=== PATIENT | male | born 1960 | race Caucasian/White ===

== ENCOUNTER 2021-09-22 15:41 | Inpatient (IN) | payer OTHER, SELFPAY ==
--- NOTE | ~2021-09-22 | CT_ITS ---
EXAMINATION: CT BRAIN AND CT CERVICAL SPINE WITHOUT CONTRAST. CLINICAL INFORMATION: Fall, seizure COMPARISON: None TECHNIQUE: 5 mm thin axial and reformatted 2 mm thin sagittal and coronal images of brain were obtained. Subsequently axial 3 mm thin and reformatted 2 mm thin sagittal and coronal images of cervical spine were obtained. DL 1087 FINDINGS: Brain: There is no acute intra-axial, extra-axial bleed, masses or midline shift. There is no acute infarction evolution. There is a 9 mm calcified density in the midline loulou measuring up 0.9 x 0.7 cm on axial image 24/4. This lesion was visualized on the previous study and is approximately same size. There is a subtle tubular hyper density extending from the dorsal to ventral loulou likely a draining vein into the left petrosal sinus. There is most likely a venous anomaly which was seen previously and is stable. There is no edema or mass effect at this time. The lateral ventricles are symmetrical in size and configuration with minimal enlargement. There is mild prominence of bilateral frontal cortical sulci and subarachnoid space. It is similar to previous study. Bone windows reveal left temporal craniotomy changes with mild anterior temporal lobe encephalomalacia are post surgical changes. There is no mass effect on the left temporal horn to suspect any edema or recurrent disease. Bone windows reveal no calvarial abnormality. Bilateral paranasal sinuses are well-aerated with small polyp or retention cyst right maxillary sinus. The mastoid sinuses are clear. Cervical spine: There is normal cervical lordosis. The vertebral heights, alignment and disc heights are normal. The craniovertebral junction and the C1-C2 alignment is normal. There is no visible acute fracture, dislocation or subluxation. The prevertebral and paravertebral soft tissues are normal. The airway is widely patent. There is mild bilateral facet joint arthropathy with mild narrowing of respective neural foramina. CT/CT head/brain wo con IMPRESSION: No acute intracranial process seen. Left temporal craniotomy with anterior temporal lobe encephalomalacia from remote surgery. Central pontine calcification with hyperdense drainage vein likely venous anomaly. The findings are similar previous CT brain 08/02/2018. There is no mass effect edema at this time. No acute fracture or dislocation cervical spine. There are degenerative facet joint arthropathy changes in cervical spine with mild narrowing of respective neural foramina.
--- NOTE | ~2021-09-22 | CT_ITS ---
EXAMINATION: CT BRAIN AND CT CERVICAL SPINE WITHOUT CONTRAST. CLINICAL INFORMATION: Fall, seizure COMPARISON: None TECHNIQUE: 5 mm thin axial and reformatted 2 mm thin sagittal and coronal images of brain were obtained. Subsequently axial 3 mm thin and reformatted 2 mm thin sagittal and coronal images of cervical spine were obtained. DLP 1087 FINDINGS: Brain: There is no acute intra-axial, extra-axial bleed, masses or midline shift. There is no acute infarction evolution. There is a 9 mm calcified density in the midline loulou measuring up 0.9 x 0.7 cm on axial image 24/4. This lesion was visualized on the previous study and is approximately same size. There is a subtle tubular hyper density extending from the dorsal to ventral loulou likely a draining vein into the left petrosal sinus. There is most likely a venous anomaly which was seen previously and is stable. There is no edema or mass effect at this time. The lateral ventricles are symmetrical in size and configuration with minimal enlargement. There is mild prominence of bilateral frontal cortical sulci and subarachnoid space. It is similar to previous study. Bone windows reveal left temporal craniotomy changes with mild anterior temporal lobe encephalomalacia are post surgical changes. There is no mass effect on the left temporal horn to suspect any edema or recurrent disease. Bone windows reveal no calvarial abnormality. Bilateral paranasal sinuses are well-aerated with small polyp or retention cyst right maxillary sinus. The mastoid sinuses are clear. Cervical spine: There is normal cervical lordosis. The vertebral heights, alignment and disc heights are normal. The craniovertebral junction and the C1-C2 alignment is normal. There is no visible acute fracture, dislocation or subluxation. The prevertebral and paravertebral soft tissues are normal. The airway is widely patent. There is mild bilateral facet joint arthropathy with mild narrowing of respective neural foramina. CT/CT cervical spine wo con IMPRESSION: No acute intracranial process seen. Left temporal craniotomy with anterior temporal lobe encephalomalacia from remote surgery. Central pontine calcification with hyperdense drainage vein likely venous anomaly. The findings are similar previous CT brain 08/02/2018. There is no mass effect edema at this time. No acute fracture or dislocation cervical spine. There are degenerative facet joint arthropathy changes in cervical spine with mild narrowing of respective neural foramina.
--- NOTE | ~2021-09-22 | CT_ITS ---
EXAMINATION: CT ABDOMEN AND PELVIS WITHOUT CONTRAST CLINICAL INFORMATION: Abdominal pain COMPARISON: Previous CT of the abdomen and pelvis 09/22/2021 TECHNIQUE: Multidetector volumetric imaging was performed from the superior aspect of the liver through the pubic symphysis. Sagittal and coronal reformatted images were obtained on the technologist's workstation. This CT examination was performed using dose optimization techniques as appropriate, variously including the following: *Automated exposure control *Adjustment of mA and/or kV according to patient size (this includes techniques or standardized protocols for targeted exams where dose is matched to indication/reason for exam; i.e. extremities or head) *Use of iterative reconstruction technique DLP: 411 mGy-cm FINDINGS: LUNG BASES: The visualized lung bases are unremarkable. LIVER, GALLBLADDER, AND BILIARY TREE: The liver is normal in size, shape, and attenuation. No focal hepatic lesion or biliary ductal dilatation is present. The gallbladder is unremarkable with no evidence of radiopaque gallstones, gallbladder wall thickening, or obvious pericholecystic inflammatory changes. Gallbladder no longer appears distended. PANCREAS: Unremarkable. SPLEEN: Unremarkable. ADRENAL GLANDS: Unremarkable. KIDNEYS AND URETERS: The kidneys are normal in size, shape, and attenuation. No hydronephrosis, hydroureter, or calculi seen. No perinephric stranding. BLADDER: Not optimally distended. GASTROINTESTINAL TRACT: There is mild diverticulosis of the colon. No evidence of diverticulitis is seen. There are slightly distended fluid-filled loops of proximal small bowel. No transition zone is seen. The stomach is slightly distended and filled with food. Small and large bowel is otherwise unremarkable. The appendix is unremarkable. ABDOMINAL WALL: No significant hernia is appreciated. LYMPH NODES: Normal. VASCULAR: There is evidence of atherosclerotic disease. There is an IVC filter that appears unchanged. PELVIC VISCERA: Unremarkable. OSSEOUS STRUCTURES: There are degenerative changes of the spine. CT/CT abdomen pelvis wo con IMPRESSION: Normal-appearing gallbladder. Diverticulosis of the colon. Slightly distended fluid-filled loops of proximal small bowel and slightly distended fluid-filled fluid-filled stomach. Differential would include ileus and partial small bowel obstruction. No transition zone is seen. Fleischner guidelines were followed.
--- NOTE | ~2021-09-22 | CT_ITS ---
EXAMINATION: CT ABDOMEN AND PELVIS WITHOUT CONTRAST CLINICAL INFORMATION: History of small bowel obstruction, abdominal pain COMPARISON: None TECHNIQUE: Multidetector volumetric imaging was performed from the superior aspect of the liver through the pubic symphysis. Sagittal and coronal reformatted images were obtained on the technologist's workstation. This CT examination was performed using dose optimization techniques as appropriate, variously including the following: *Automated exposure control *Adjustment of mA and/or kV according to patient size (this includes techniques or standardized protocols for targeted exams where dose is matched to indication/reason for exam; i.e. extremities or head) *Use of iterative reconstruction technique DLP: 449 mGy-cm FINDINGS: LUNG BASES: The visualized lung bases are unremarkable. ABDOMINAL AND PELVIC WALL: Unremarkable. LIVER AND BILIARY TREE: Unremarkable GALLBLADDER: Gallbladder is moderately distended however without radiopaque stones. PANCREAS: Unremarkable SPLEEN: Unremarkable ADRENAL GLANDS: Unremarkable. KIDNEYS AND URETERS: Unremarkable. UPPER GASTROINTESTINAL TRACT: Small hiatal hernia. VASCULAR: IVC filter tip terminates below the level of the renal veins. LYMPH NODES: No lymphadenopathy. BLADDER: Unremarkable PELVIC VISCERA: Unremarkable LOWER GASTROINTESTINAL TRACT: Colonic diverticulosis without evidence of diverticulitis. No dilation of large or small bowel to suggest obstruction. No findings to suggest appendicitis. OSSEOUS STRUCTURES: Unremarkable CT/CT abdomen pelvis wo con IMPRESSION: No findings to suggest small bowel obstruction. Gallbladder is moderately distended. No radiopaque gallstones seen. Consider correlation with right upper quadrant pain and right upper quadrant ultrasound if symptoms warrant.
[2021-09-22 15:54] VITALS: BP 129/96; PULSE 106; PULSE 109; RESP 18; TEMP 36.6; O2SAT 97; O2SAT 98; BMI 22.9
[2021-09-22] MEDS: levETIRAcetam in NaCl (iso-os) 1,000 MG/100 ML PIGGYBACK 400 MG IV (16:48)
[2021-09-22] MEDS: 0.9 % Sodium Chloride 1,000 ML 999 ML IV (16:49)
--- NOTE | 2021-09-22 16:50 | ED.GENADULT ---
HPI - General Adult General Chief complaint: Seizure Stated complaint: etoh Time Seen by Provider: 09/22/21 16:20 Source: patient Mode of arrival: ambulatory Limitations: no limitations History of Present Illness HPI narrative: 61-year-old male with past medical history of migraines, alcohol abuse, and seizure presents to ED for seizure-like activity. As per EMS patient's friend who was drinking called call them for fall. As per EMS during ambulance ride patient had tonic clonic seizure activity. Unknown if patient is compliant with seizure medications. Patient denies any headache, chest pain or shortness of breath. Patient agrees to drinking 5 nips of alcohol per day Related Data Home Medications Medication Instructions Recorded Confirmed acetaminophen 500 mg tablet 1,000 mg PO TID PRN 09/22/21 09/22/21 aspirin 81 mg chewable tablet 1 tab PO DAILY 09/22/21 09/22/21 atorvastatin 40 mg tablet 1 tab PO DAILY 09/22/21 09/22/21 clonidine HCl 0.1 mg tablet 1 tab PO QPM 09/22/21 09/22/21 divalproex 250 mg tablet,extended 500 mg PO DAILY 09/22/21 09/22/21 release 24 hr escitalopram oxalate 20 mg tablet 1 tab PO DAILY 09/22/21 09/22/21 fluticasone furoate 100 1 puff INHALATION DAILY 09/22/21 09/22/21 mcg-vilanterol 25 mcg/dose inhalation powder (Breo Ellipta) gabapentin 400 mg capsule 1 cap PO TID 09/22/21 09/22/21 lamotrigine 25 mg tablet 1 tab PO BID 09/22/21 09/22/21 levetiracetam 1,000 mg tablet 1 tab PO BID 09/22/21 09/22/21 mometasone-formoterol HFA 100 2 puff INHALATION BID 09/22/21 09/22/21 mcg-5 mcg/actuation aerosol inhaler (Dulera) multivitamin 1 tab PO DAILY 09/22/21 09/22/21 trazodone 150 mg tablet 1 tab PO BEDTIME 09/22/21 09/22/21 umeclidinium 62.5 mcg/actuation 1 puff INHALATION DAILY 09/22/21 09/22/21 blister powder for inhalation (Incruse Ellipta) Allergies Allergy/AdvReac Type Severity Reaction Status Date / Time No Known Allergies Allergy Unverified 06/01/20 19:35 [No Known Allergies*] Review of Systems Review of Systems: Alcohol on breath. Possible fall Yes all other systems are reviewed and are negative [facility] Social History Social History Household Members: Family Housing: Apartment Do you presently have visiting nurse or other home services: Yes Alcohol intake: current Alcohol intake frequency: 3 or more drinks per day Alcohol type: hard liquor Patient Tobacco Use Status: Current everyday Tobacco user Tobacco use type: Cigarette Smoked in Last 30 Days: Yes Patient Interested in Nicotine Replacement: Yes Patient Given Instructions on How to Stop Smoking: No Second Hand Smoke Exposure: No Use of substances other than those prescribed or required for medical reasons: No Have you been hit, kicked, punched, or otherwise hurt by someone within the past year? If so, by whom?: No Do you feel safe in your current relationship?: No Is there a partner from a previous relationship who is making you feel unsafe now?: No Are you made to feel afraid or neglected: No Advance Directives: No Advance Directives Information Provided: Yes Do you have thoughts of harming others: None Do you have a plan to hurt others: No Plan Recently lost weight without trying: No Nutrition Risks: No Nutritional Risk Poor oral hygiene: No Physical Exam Vital Signs: Vital Signs: Last Vital Signs Temp 97.2 F 09/22/21 23:55 Pulse 93 09/22/21 23:55 Resp 20 09/22/21 23:55 BP 127/72 09/22/21 23:55 Pulse Ox 95 09/22/21 23:55 BMI result Body Mass Index 22.9 Const: General: cooperative, healthy appearing, comfortable, no acute distress and well developed Orientation/consciousness: oriented to time HENMT: Head: Yes normal to inspection, Yes No palpable skull fracture present, Yes normocephalic, No atraumatic and No abrasion Eyes: General: appearance normal, both eyes and all related structures Neck: Neck: Yes normal visual inspection, Yes full ROM, Yes no lymphadenopathy, Yes no meningeal signs, Yes trachea midline, Yes supple, No anterior neck swelling and No tender Chest: Chest palpation & inspection: normal inspection of the chest and normal palpation of entire chest wall Resp: Effort & Inspection: normal respiratory effort and able to speak in complete sentences Auscultation: clear to auscultation bilaterally Cardio: Jugular venous distension: no JVD Heart sounds: S1 normal heart sound present and S2 normal heart sound present GI: Inspection: Yes normal to inspection and No abdominal wall ecchymosis Palpation (GI): Soft to palpation, not firm, nontender, no guarding and not rigid : General: No CVA tenderness and Yes no CVA tenderness Back/Spine/Pelvis: Back: no CVA tenderness, No CVA tenderness and No back tenderness Skin: General skin exam: no rashes or lesions noted and elasticity normal Neuro: Other: Alcohol on breath, but is alert oriented x3. Negative facial droop. Negative slurred speech. All extremities equal strength 5+. Negative pronator drift General: oriented to time, gait normal and no meningeal signs Extrem: General: Yes normal to inspection and Yes full ROM Psych: Appearance: disheveled Course Course Course Narrative: Patient on extensive seizure medications unsure if patient is compliant. Patient's presentation, history of alcohol abuse, and being on the street unlikely patient is compliant with medication. Send Depakote level. . Will give Keppra. Will do imaging of head and neck due to patient's elías calling for fall after drinking. Labs including electrolytes/magnesium ordered. Reevaluation(s) Reevaluation #1: Received recent discharge/hospital stay papers from [facility] which was on 08/21/2021. Patient was admitted for diverticulitis small-bowel obstruction which required IV antibiotics and patient was discharged. While reviewing notes states patient has history of alcohol use disorder, alcohol withdrawal, hepatitis cirrhosis, COPD diabetes, seizure, history of chronic headaches and has hemangioma as per [facility] and not any form of hemorrhage or anuerysm. Patient's discharge papers showed seizure medication to start Depakote, Keppra, and lamictal. Time: 17:00 Reevaluation #2: Patient labs shows hypokalemia. Magnesium is normal. Kidney functions normal. LFTs at baseline. Patient's valproic it is subtherapeutic which shows patient is not compliant with meds not taking medication. Head CT scan cervical spine CT negative for any fracture. Time: 18:59 Reevaluation #3: Case was discussed with Dr. Cox for admission for seizure due to patient not being compliant with seizure meds versus possible alcohol withdrawal seizure the patient history of alcoholism. He agree non compliant or alcohol withdrawal could be cause reason for patient having seizure and recommends patient be admitted. Also recommended patient be started on phenobarbital Time: 00:30 Medical Decision Making MDM Narrative Medical decision making narrative: Seizure Lab Data Result diagrams: 09/22/21 17:39 09/22/21 17:39 Labs: Lab Results 09/22/21 09/22/21 09/22/21 Range/Units 17:39 17:39 17:39 WBC 5.1 (4.8-10.8) X10*3/uL RBC 4.57 L (4.60-5.80) X10*6/uL Hgb 14.7 (14.0-18.0) g/dl Hct 41.7 L (42.0-52.0) % MCV 91.2 (80.0-98.0) fL MCH 32.2 (27.0-33.0) pg MCHC 35.3 (31.0-36.0) g/dl RDW 15.0 (11.0-16.0) % Plt Count 162 (160-400) X10*3/uL MPV 9.6 (9.4-12.4) fL Immature Gran % (Auto) 0.2 (0.0-0.4) % Neut % (Auto) 52.5 (45-73) % Lymph % (Auto) 32.9 (20-40) % [place] % (Auto) 11.4 H (2-11) % Eos % (Auto) 1.6 (0-4) % Baso % (Auto) 1.4 (0-2) % Lymph # (Auto) 1.7 (1.2-4.9) X10*3/uL [place] # (Auto) 0.6 (0.1-1.2) X10*3/uL Eos # (Auto) 0.1 (0.0-0.4) X10*3/uL Baso # (Auto) 0.1 (0.0-0.2) X10*3/uL Abs Immat Gran (auto) 0.01 (0.00-0.03) X10*3/uL Absolute Neuts (auto) 2.7 (2.0-8.3) x10*3/uL Absolute Nucleated RBC 0.000 (0.0-0.012) X10*3/uL Nucleated RBC % (auto) 0.0 (0.0-0.2) /100WBC PT (9.9-13.0) SEC INR (0.9-1.1) APTT (24.1-38.0) SEC Sodium 142 (135-145) mmol/L Potassium 3.0 L (3.3-5.1) mmol/L Chloride 94 L (96-108) mmol/L Carbon Dioxide 27 (22-29) mmol/L Anion Gap 24 H (12-20) BUN 9 (9-16) mg/dL Creatinine 0.64 (0.5-1.4) mg/dL Estim Creat Clear Calc 121.2 Estimated GFR > 60 Random Glucose 85 (60-115) mg/dL Calcium 8.6 (8.4-10.2) mg/dL Magnesium 1.9 (1.6-2.6) mg/dL Total Bilirubin 1.7 H (0.0-1.0) mg/dL AST 76 H (5-37) U/L ALT 47 H (0-40) U/L Alkaline Phosphatase 89 (39-117) U/L Total Protein 6.0 L (6.5-8.0) g/dL Albumin 3.5 (3.5-5.0) g/dL Lipase 57 (8-78) U/L Valproic Acid (50.0-100.0) mcg/mL Ethyl Alcohol 291 mg/dL 09/22/21 09/22/21 Range/Units 17:39 17:39 WBC (4.8-10.8) X10*3/uL RBC (4.60-5.80) X10*6/uL Hgb (14.0-18.0) g/dl Hct (42.0-52.0) % MCV (80.0-98.0) fL MCH (27.0-33.0) pg MCHC (31.0-36.0) g/dl RDW (11.0-16.0) % Plt Count (160-400) X10*3/uL MPV (9.4-12.4) fL Immature Gran % (Auto) (0.0-0.4) % Neut % (Auto) (45-73) % Lymph % (Auto) (20-40) % [place] % (Auto) (2-11) % Eos % (Auto) (0-4) % Baso % (Auto) (0-2) % Lymph # (Auto) (1.2-4.9) X10*3/uL [place] # (Auto) (0.1-1.2) X10*3/uL Eos # (Auto) (0.0-0.4) X10*3/uL Baso # (Auto) (0.0-0.2) X10*3/uL Abs Immat Gran (auto) (0.00-0.03) X10*3/uL Absolute Neuts (auto) (2.0-8.3) x10*3/uL Absolute Nucleated RBC (0.0-0.012) X10*3/uL Nucleated RBC % (auto) (0.0-0.2) /100WBC PT 11.8 (9.9-13.0) SEC INR 1.0 (0.9-1.1) APTT 23.8 L (24.1-38.0) SEC Sodium (135-145) mmol/L Potassium (3.3-5.1) mmol/L Chloride (96-108) mmol/L Carbon Dioxide (22-29) mmol/L Anion Gap (12-20) BUN (9-16) mg/dL Creatinine (0.5-1.4) mg/dL Estim Creat Clear Calc Estimated GFR Random Glucose (60-115) mg/dL Calcium (8.4-10.2) mg/dL Magnesium (1.6-2.6) mg/dL Total Bilirubin (0.0-1.0) mg/dL AST (5-37) U/L ALT (0-40) U/L Alkaline Phosphatase (39-117) U/L Total Protein (6.5-8.0) g/dL Albumin (3.5-5.0) g/dL Lipase (8-78) U/L Valproic Acid 4.3 L (50.0-100.0) mcg/mL Ethyl Alcohol mg/dL Discharge Plan Discharge Clinical Impression: Seizure, Alcohol abuse, Generalized seizure, Alcohol withdrawal Patient Disposition: Admitted As Inpatient Interventions: Admission Worksheet (ED) Last Done: 09/22/21 23:58 Discharge Date/Time: 09/22/21 23:59
--- NOTE | 2021-09-22 17:24 | PC.NURSE ---
PTS SON COLLEEN CALLED FOR UPDATE, PT GAVE PERMISSION FOR SHARING HIS DISPOSITION AND CARE PLAN SON REPORTS IF HIS FATHER GETS D/C PLEASE CALL [facility] FOR [facility]- FRIEND
[2021-09-22 17:44] LABS: MANUAL DIFF FLAG NO
[2021-09-22 17:45] LABS: Basophils Absolute Auto 0.1 X10*3/uL (0.0-0.2); Basophils Percent Auto 1.4 % (0-2); Eosinophils Absolute Auto 0.1 X10*3/uL (0.0-0.4); Eosinophils Percent Auto 1.6 % (0-4); Hematocrit 41.7 % (42.0-52.0); Hemoglobin 14.7 g/dl (14.0-18.0); Imm Gran Abs Auto 0.01 X10*3/uL (0.00-0.03); Imm Gran Pct Auto 0.2 % (0.0-0.4); Lymphocytes Absolute Auto 1.7 X10*3/uL (1.2-4.9); Lymphocytes Percent Auto 32.9 % (20-40); Mean Corpuscular HGB Conc 35.3 g/dl (31.0-36.0); Mean Corpuscular Hemoglobin 32.2 pg (27.0-33.0); Mean Corpuscular Volume 91.2 fL (80.0-98.0); Mean Platelet Volume 9.6 fL (9.4-12.4); Monocytes Absolute Auto 0.6 X10*3/uL (0.1-1.2); Monocytes Percent Auto 11.4 % (2-11); Neutrophils Absolute Auto 2.7 x10*3/uL (2.0-8.3); Neutrophils Percent Auto 52.5 % (45-73); Platelet Count 162 X10*3/uL (160-400); Red Blood Count 4.57 X10*6/uL (4.60-5.80); White Blood Count 5.1 X10*3/uL (4.8-10.8)
[2021-09-22] MEDS: Divalproex Sodium 500 MG TABLET.DR PO (17:51)
[2021-09-22 17:52] LABS: Prothrombin Time 11.8 SEC (9.9-13.0)
[2021-09-22 17:55] LABS: Partial Thromboplastin Time 23.8 SEC (24.1-38.0)
[2021-09-22 18:00] LABS: Ethanol 291 mg/dL
[2021-09-22 18:06] LABS: Alanine Aminotransferase 47 U/L (0-40); Albumin Level 3.5 g/dL (3.5-5.0); Alkaline Phosphatase 89 U/L (39-117); Anion Gap 24 (12-20); Aspartate Amino Transferase 76 U/L (5-37); Bilirubin Total 1.7 mg/dL (0.0-1.0); Blood Urea Nitrogen 9 mg/dL (9-16); Calcium 8.6 mg/dL (8.4-10.2); Carbon Dioxide 27 mmol/L (22-29); Chloride 94 mmol/L (96-108); Creatinine Clr Calc Pharmacy 121.2; Estimated Glomerular Filt Rate > 60; Glucose Random 85 mg/dL (60-115); Magnesium 1.9 mg/dL (1.6-2.6); Sodium 142 mmol/L (135-145); Valproate 4.3 mcg/mL (50.0-100.0)
[2021-09-22 19:38] VITALS: BP 116/73; PULSE 100; RESP 16; O2SAT 99
[2021-09-22] MEDS: Potassium Chloride Packet 20 MEQ PACKET 40 MEQ PO (19:50)
--- NOTE | 2021-09-22 20:40 | P.HPHOSP_ITS ---
History of Present Illness Date of Service: 09/22/21 Chief Complaint: Seizure 61-year-old male with a past medical history of hypertension, diabetes, polysubstance abuse, alcohol abuse, liver cirrhosis, hepatitis-C, COPD, history of NSTEMI, history of DVT/PE status post IVC filter, migraine headaches, seizure disorder on antiepileptics, history of migraines, history of C diff, history of cerebral aneurysm status post clipping presented to the hospital today with a chief complaint of seizure episode. Patient is a poor historian. Reportedly patient had an episode of seizure at home and subsequently brought to the hospital for further evaluation. Patient reports that he has been drinking regularly. Reports he had a recent admission to the [facility] for constipation, diverticulitis, small-bowel obstruction. Denies any abdominal pain nausea vomiting or diarrhea. Denies any numbness tingling or focal weakness. Review of all other systems is negative except mentioned above ER course: Per ER team patient's exam was benign, CT head and CT C-spine showed no acute findings; alcohol level noted to be elevated; also has mild transaminitis. Depakote level was low. Concern for seizure episode secondary to medication noncompliance. Admitted for further management. Patient started on phenobarb protocol. PMH: Cerebral aneurysm, nonruptured s/p clip in 2006 Chronic hepatitis C Chronic obstructive pulmonary disease Cirrhosis of liver Diabetes ETOH abuse Headache, chronic daily History of C. difficile colitis History of intracranial hemorrhage History of NSTEMI associated with cocaine History of PE and bilateral DVT, s/p IVC filter placement Migraine headache without aura Pneumonia Seizure disorder, petit mal Tobacco dependence PSH: IVC - Insertion of inferior vena caval filter: 2014 Clipping of cerebral aneurysm: 2009 Repair of umbilical hernia: 2009 Social History Alcohol Details: Other: lives in sober house. Details: Use: Past. Other: States history of alcoholism, states sober x 7 months. Substance Abuse Details: Use: Past. Type: Heroin, Prescription medications. Other: states clean x 3 years. Tobacco Details: Use: 10 or more cigarettes (1/2 pack or more)/day in last 30 days. Details: Current every day smoker HOME MEDs: Acamprosate (acamprosate 333 mg oral delayed release tablet) 2 tab(s) 666 Milligram By Mouth 3 times a day for 30 Days Dispense: 180 tab(s) Acetaminophen (acetaminophen 500 mg oral tablet) 1 tab(s) 500 Milligram By Mouth Every 4 hours as needed as needed for pain Albuterol/Ipratropium (albuterol-ipratropium 3 mg-0.5 mg/3 ml inhalation solution) 3 Milliliter Inhalation 4 times a day as needed Wheezing/Shortness of Breath Dispense: 30 Each Aspirin (aspirin 81 mg oral delayed release tablet) 81 Milligram 1 tablet By Mouth Daily Dispense: 30 tab(s) Atorvastatin (atorvastatin 40 mg oral tablet) 1 tab(s) 40 Milligram By Mouth Daily Dispense: 30 tab(s) Clonidine (cloNIDine 0.1 mg oral tablet) 0.1 Milligram 1 tablet By Mouth Every 8 hours Divalproex Sodium (Depakote ER 250 mg oral tablet, extended release) 2 tab(s) 500 Milligram By Mouth Daily for 90 Days do not crush or chew take it with food, for headaches Dispense: 180 tab(s) Escitalopram (escitalopram 20 mg oral tablet) 1 tab(s) 20 Milligram By Mouth Daily Folic Acid (folic acid 1 mg oral tablet) 1 Milligram 1 tablet By Mouth Daily Dispense: 30 tab(s) formoterol-mometasone (Dulera 100 mcg-5 mcg/inh inhalation aerosol) 2 puff(s) Inhalation 2 times a day Gabapentin (gabapentin 400 mg oral capsule) 400 Milligram 1 capsule By Mouth 3 times a day Dispense: 90 capsule Hydromorphone (Dilaudid 2 mg oral tablet) 1 tab(s) 2 Milligram By Mouth Every 8 hours as needed as needed for pain for 5 Days Dispense: 15 tab(s) Lamotrigine (lamotrigine 25 mg oral tablet) 25 Milligram By Mouth Every 12 hours levETIRAcetam (levETIRAcetam 1000 mg oral tablet) 1 tab(s) 1,000 Milligram By Mouth 2 times a day for 30 Days Dispense: 60 tab(s) Melatonin (Melatonin 3 mg oral tablet) By Mouth Daily at bedtime 1 to 2 tabs Metoprolol (Metoprolol Succinate ER 25 mg oral tablet, extended release) 1 tab(s) 25 Milligram By Mouth Daily Multivitamin (Vit B Complex Tablet) 1 tab(s) By Mouth Daily Nicotine (nicotine 21 mg/24 hr transdermal film, extended release) 1 patch(es) Topically Daily for 21 Days Dispense: 21 patch(es) Nitroglycerin (nitroglycerin 0.4 mg sublingual tablet) 1 tab(s) 0.4 Milligram Sublingual Every 5 minutes as needed as needed for chest pain not to exceed 3 doses/15 min--if pain persists, seek medical attention Omeprazole (omeprazole 20 mg oral enteric coated capsule) 1 capsule 20 Milligram By Mouth Daily Polyethylene Glycol 3350 (MiraLax oral powder for reconstitution) 17 gram By Mouth Daily dissolve in water before taking Dispense: 255 gram Thiamine (thiamine 100 mg oral tablet) 100 Milligram 1 tablet By Mouth 2 times a day Dispense: 30 tab(s) Tizanidine (tiZANidine 4 mg oral tablet) 4 Milligram 1 tablet By Mouth Every 8 hours Trazodone (traZODone 150 mg oral tablet) 1 tab(s) 150 Milligram By Mouth Daily at bedtime Dispense: 30 tab(s) umeclidinium (Incruse Ellipta 62.5 mcg/inh inhalation powder) 1 Each Inhalation Every 24 hours doses should be taken at least 24 hours apart PMFSH Pertinent family history: Family History Mother: Cancer of lung; Diabetes mellitus type II Father: Cancer of lung; Diabetes mellitus type II Brother: Myocardial infarction Social History Alcohol intake: current Alcohol intake frequency: 3 or more drinks per day Alcohol type: hard liquor Patient Tobacco Use Status: Current everyday Tobacco user Use of substances other than those prescribed or required for medical reasons: No Advance Directives: No Advance Directives Information Provided: Yes Meds Allergies Allergy/AdvReac Type Severity Reaction Status Date / Time No Known Allergies Allergy Unverified 06/01/20 19:35 [No Known Allergies*] Active Medications: Current Medications Famotidine (Famotidine 20 Mg Tablet) 20 mg PO BID YELENA Folic Acid (Folic Acid 1 Mg Tablet) 1 mg PO DAILY YELENA Stop: 09/26/21 08:59 Levetiracetam (Levetiracetam 1,000 Mg Tablet) mg PO BID YELENA Lorazepam (Lorazepam 2 Mg/Ml Vial) 1 mg IVPUSH Q2H PRN PRN Reason: Seizures Melatonin (Melatonin 3 Mg Tablet) 6 mg PO BEDTIME PRN PRN Reason: Insomnia Multivitamins/Vitamin C (Multivitamin Tablet) 1 tab PO DAILY YELENA Stop: 09/26/21 08:59 Pharmacy Consult (Consult Rx Etoh Phenob Dosing) 1 each MISCELLANE ONCE ONE; Protocol Stop: 09/22/21 20:39 Senna (Sennosides 8.6 Mg Tablet) 17.2 mg PO BEDTIME PRN PRN Reason: Constipation Sodium Chloride (0.9 % Sodium Chloride Flush 3 Ml Syringe) 3 ml IVFLUSH QSHIFT YELENA Thiamine HCl (Thiamine Hcl 100 Mg Tablet) 100 mg PO DAILY YELENA Stop: 09/26/21 08:59 Home Medications Medication Instructions Recorded Confirmed Last Taken Type acetaminophen 500 mg tablet 1,000 mg PO TID PRN 09/22/21 09/22/21 Unknown History aspirin 81 mg chewable tablet 1 tab PO DAILY 09/22/21 09/22/21 Unknown History atorvastatin 40 mg tablet 1 tab PO DAILY 09/22/21 09/22/21 Unknown History clonidine HCl 0.1 mg tablet 1 tab PO QPM 09/22/21 09/22/21 Unknown History divalproex 250 mg tablet,extended 500 mg PO DAILY 09/22/21 09/22/21 Unknown History release 24 hr escitalopram oxalate 20 mg tablet 1 tab PO DAILY 09/22/21 09/22/21 Unknown History fluticasone furoate 100 1 puff INHALATION DAILY 09/22/21 09/22/21 Unknown History mcg-vilanterol 25 mcg/dose inhalation powder (Breo Ellipta) gabapentin 400 mg capsule 1 cap PO TID 09/22/21 09/22/21 Unknown History lamotrigine 25 mg tablet 1 tab PO BID 09/22/21 09/22/21 Unknown History levetiracetam 1,000 mg tablet 1 tab PO BID 09/22/21 09/22/21 Unknown History mometasone-formoterol HFA 100 2 puff INHALATION BID 09/22/21 09/22/21 Unknown History mcg-5 mcg/actuation aerosol inhaler (Dulera) multivitamin 1 tab PO DAILY 09/22/21 09/22/21 Unknown History trazodone 150 mg tablet 1 tab PO BEDTIME 09/22/21 09/22/21 Unknown History umeclidinium 62.5 mcg/actuation 1 puff INHALATION DAILY 09/22/21 09/22/21 Unknown History blister powder for inhalation (Incruse Ellipta) Physical Exam Vital Signs and Narrative: Vital Signs: Last Vital Signs Temp 97.9 F 09/22/21 15:54 Pulse 100 09/22/21 19:38 Resp 16 09/22/21 19:38 BP 116/73 09/22/21 19:38 Pulse Ox 99 09/22/21 19:38 BMI result Body Mass Index 22.9 Gen: Appears be in no acute distress HEENT: NCAT, Moist mucosa. Pulmonary: Vesicular breath sounds, fair air entry CVS: Normal S1-S2 Abdomen: BS+, Soft, Nontender Extremities: Warm well perfused Neuro: Alert and awake. Results Labs CBC and Chem 7: 09/22/21 17:39 09/22/21 17:39 Labs: Laboratory Results - last 24 hr 09/22/21 09/22/21 09/22/21 17:39 17:39 17:39 MCV 91.2 MCH 32.2 MCHC 35.3 RDW 15.0 Plt Count 162 MPV 9.6 Immature Gran % (Auto) 0.2 Neut % (Auto) 52.5 Lymph % (Auto) 32.9 [place] % (Auto) 11.4 H Eos % (Auto) 1.6 Baso % (Auto) 1.4 Lymph # (Auto) 1.7 [place] # (Auto) 0.6 Eos # (Auto) 0.1 Baso # (Auto) 0.1 Abs Immat Gran (auto) 0.01 Absolute Neuts (auto) 2.7 Absolute Nucleated RBC 0.000 Nucleated RBC % (auto) 0.0 PT INR APTT Anion Gap 24 H Estim Creat Clear Calc 121.2 Estimated GFR > 60 Random Glucose 85 Calcium 8.6 Magnesium 1.9 Total Bilirubin 1.7 H AST 76 H ALT 47 H Alkaline Phosphatase 89 Total Protein 6.0 L Albumin 3.5 Valproic Acid Ethyl Alcohol 291 09/22/21 09/22/21 17:39 17:39 MCV MCH MCHC RDW Plt Count MPV Immature Gran % (Auto) Neut % (Auto) Lymph % (Auto) [place] % (Auto) Eos % (Auto) Baso % (Auto) Lymph # (Auto) [place] # (Auto) Eos # (Auto) Baso # (Auto) Abs Immat Gran (auto) Absolute Neuts (auto) Absolute Nucleated RBC Nucleated RBC % (auto) PT 11.8 INR 1.0 APTT 23.8 L Anion Gap Estim Creat Clear Calc Estimated GFR Random Glucose Calcium Magnesium Total Bilirubin AST ALT Alkaline Phosphatase Total Protein Albumin Valproic Acid 4.3 L Ethyl Alcohol Imaging Radiologist's Impressions: Impressions Cervical Spine CT 09/22/21 18:10 IMPRESSION: No acute intracranial process seen. Left temporal craniotomy with anterior temporal lobe encephalomalacia from remote surgery. Central pontine calcification with hyperdense drainage vein likely venous anomaly. The findings are similar previous CT brain 08/02/2018. There is no mass effect edema at this time. No acute fracture or dislocation cervical spine. There are degenerative facet joint arthropathy changes in cervical spine with mild narrowing of respective neural foramina. Head CT 09/22/21 18:10 IMPRESSION: No acute intracranial process seen. Left temporal craniotomy with anterior temporal lobe encephalomalacia from remote surgery. Central pontine calcification with hyperdense drainage vein likely venous anomaly. The findings are similar previous CT brain 08/02/2018. There is no mass effect edema at this time. No acute fracture or dislocation cervical spine. There are degenerative facet joint arthropathy changes in cervical spine with mild narrowing of respective neural foramina. Assessment and Plan (1) Seizure: Status: Acute (2) Alcohol abuse: Status: Acute 61-year-old male with a past medical history of hypertension, diabetes, polysubstance abuse, alcohol abuse, liver cirrhosis, hepatitis-C, COPD, history of NSTEMI, history of DVT/PE status post IVC filter, migraine headaches, seizure disorder on antiepileptics, history of migraines, history of C diff, history of cerebral aneurysm status post clipping presented to the hospital today with a chief complaint of seizure episode. Admitted for following Seizure episode: Likely in the setting of medication noncompliance. Patient defer levels were low. Continue home Depakote, lamotrigine, Keppra. Neurology consult Seizure precautions Aspiration precautions and fall precautions. IV Ativan p.r.n. for breakthrough seizures. Alcohol abuse: Patient is started on phenobarb protocol. Continue thiamine folate and multivitamins. Transaminitis: In the setting of alcohol use. Patient has chronically elevated liver enzymes. Recent history of SBO: Resolved. Patient currently denies any abdominal symptoms. Will continue to monitor For all other chronic conditions, home medications continued DVT prophylaxis: SCD boots Code status: Full code Quality Stroke Does the patient have a stroke diagnosis?: No VTE Prior VTE?: No VTE Risk Level:: Medical - low VTE Device Contraindication: N/A - Device Ordered VTE Drug Contraindication: Treatment Not Indicated
--- NOTE | 2021-09-22 21:01 | HE.PHANOTE ---
Benzodiazepam w/ phenobarital protocol Dr. Cox he wants Ativan PRN for seizures while on phenobarbital protocol. Franchesca Burrell, PharmD
[2021-09-22] MEDS: Famotidine 20 MG TABLET PO (21:22)
[2021-09-22] MEDS: lamoTRIgine 25 MG TABLET PO (21:22)
[2021-09-22] MEDS: Gabapentin 400 MG CAPSULE PO (21:23)
[2021-09-22] MEDS: PHENobarbitaL sodium 130 MG/ML VIAL 234 MG IM (21:23)
[2021-09-22 22:24] VITALS: PULSE 118; RESP 22; O2SAT 97
[2021-09-22 22:33] LABS: COVID-19 Test Negative (Negative)
[2021-09-22 22:36] VITALS: BP 113/69
[2021-09-22 23:42] LABS: Lipase 57 U/L (8-78)
[2021-09-22 23:55] VITALS: BP 127/72; PULSE 93; RESP 20; TEMP 36.2; O2SAT 95
[2021-09-23] MEDS: PHENobarbitaL sodium 130 MG/ML VIAL 175.5 MG IM ×2 (00:44→04:20)
[2021-09-23] MEDS: 0.9 % Sodium Chloride Flush 3 ML SYRINGE IVFLUSH ×4 (00:44→23:51)
[2021-09-23 04:00] VITALS: BP 137/84; PULSE 102; RESP 22; TEMP 36.6; O2SAT 94
[2021-09-23 05:44] LABS: MANUAL DIFF FLAG NO
[2021-09-23 05:49] LABS: Basophils Absolute Auto 0.1 X10*3/uL (0.0-0.2); Basophils Percent Auto 1.3 % (0-2); Eosinophils Absolute Auto 0.1 X10*3/uL (0.0-0.4); Eosinophils Percent Auto 3.7 % (0-4); Hematocrit 38.8 % (42.0-52.0); Hemoglobin 13.4 g/dl (14.0-18.0); Lymphocytes Absolute Auto 1.6 X10*3/uL (1.2-4.9); Lymphocytes Percent Auto 43.3 % (20-40); Mean Corpuscular HGB Conc 34.5 g/dl (31.0-36.0); Mean Corpuscular Hemoglobin 32.1 pg (27.0-33.0); Mean Corpuscular Volume 92.8 fL (80.0-98.0); Mean Platelet Volume 10.9 fL (9.4-12.4); Monocytes Absolute Auto 0.5 X10*3/uL (0.1-1.2); Monocytes Percent Auto 14.2 % (2-11); Neutrophils Absolute Auto 1.4 x10*3/uL (2.0-8.3); Neutrophils Percent Auto 37.5 % (45-73); Platelet Count 166 X10*3/uL (160-400); Red Blood Count 4.18 X10*6/uL (4.60-5.80); Red Cell Distribution Width 14.8 % (11.0-16.0); White Blood Count 3.8 X10*3/uL (4.8-10.8)
[2021-09-23 06:17] LABS: Alanine Aminotransferase 49 U/L (0-40); Albumin Level 3.1 g/dL (3.5-5.0); Alkaline Phosphatase 91 U/L (39-117); Aspartate Amino Transferase 97 U/L (5-37); Bilirubin Direct 0.5 mg/dL (0.0-0.5); Bilirubin Total 1.3 mg/dL (0.0-1.0); Total Protein 5.4 g/dL (6.5-8.0)
[2021-09-23 06:30] LABS: Anion Gap 17 (12-20); Blood Urea Nitrogen 9 mg/dL (9-16); Calcium 7.9 mg/dL (8.4-10.2); Carbon Dioxide 30 mmol/L (22-29); Chloride 95 mmol/L (96-108); Creatinine Clr Calc Pharmacy 115.8; Estimated Glomerular Filt Rate > 60; Glucose Random 95 mg/dL (60-115); Potassium 3.4 mmol/L (3.3-5.1); Sodium 139 mmol/L (135-145)
[2021-09-23 07:59] VITALS: BP 129/75; PULSE 92; RESP 20; TEMP 36.4; O2SAT 94
[2021-09-23] MEDS: levETIRAcetam 1,000 MG TABLET 1000 MG PO ×2 (09:08→20:37)
[2021-09-23] MEDS: Escitalopram Oxalate 20 MG TABLET PO (09:08)
[2021-09-23] MEDS: Thiamine HCL 100 MG TABLET PO (09:08)
[2021-09-23] MEDS: lamoTRIgine 25 MG TABLET PO ×2 (09:08→20:37)
[2021-09-23] MEDS: Multivitamin TABLET 1 TAB PO (09:09)
[2021-09-23] MEDS: Divalproex Sodium ER 500 MG TAB.ER.24H PO (09:09)
[2021-09-23] MEDS: PHENobarbitaL 15 MG TABLET 45 MG PO ×2 (09:09→19:54)
[2021-09-23] MEDS: Gabapentin 400 MG CAPSULE PO ×3 (09:09→20:37)
[2021-09-23] MEDS: Famotidine 20 MG TABLET PO ×2 (09:09→20:37)
[2021-09-23] MEDS: Folic Acid 1 MG TABLET PO (09:09)
--- NOTE | 2021-09-23 09:27 | P.PNIM_ITS ---
Subjective Subjective Date of Service: 09/23/21 Interval History: Seen in f/u for seizure, c/o not feeling well, headache, and thinks he might have forgotten to take his meds Review of Systems no fever some headache--old no seizure Physical Exam Vital Signs: Vital Signs: Last Vital Signs Temp 97.5 F 09/23/21 07:59 Pulse 92 09/23/21 07:59 Resp 20 09/23/21 07:59 BP 129/75 09/23/21 07:59 Pulse Ox 94 09/23/21 07:59 BMI result Body Mass Index 22.9 Const: Other: General: AO X 3, no acute distress Resp: CTA bilateral CVS: S1,S2,RRR GI: +BS, NT, no distention Skin: No rash Neuro: motor grossly intact Psych: appropriate affect Objective Data Active Medications Atorvastatin Calcium (Atorvastatin Calcium 40 Mg Tablet) 40 mg PO BEDTIME [facility] Clonidine HCl (Clonidine Hcl 0.1 Mg Tablet) 0.1 mg PO BEDTIME [facility]; Protocol Divalproex Sodium (Divalproex Sodium Er 500 Mg Tab.Er.24h) 500 mg PO DAILY [facility] Last Admin: 09/23/21 09:09 Dose: 500 mg Documented by: Escitalopram Oxalate (Escitalopram Oxalate 20 Mg Tablet) 20 mg PO DAILY [facility] Last Admin: 09/23/21 09:08 Dose: 20 mg Documented by: Famotidine (Famotidine 20 Mg Tablet) 20 mg PO BID [facility] Last Admin: 09/22/21 21:22 Dose: 20 mg Documented by: FE Folic Acid (Folic Acid 1 Mg Tablet) 1 mg PO DAILY [facility] Stop: 09/26/21 08:59 Last Admin: 09/23/21 09:09 Dose: 1 mg Documented by: Gabapentin (Gabapentin 400 Mg Capsule) 400 mg PO TID [facility] Last Admin: 09/22/21 21:23 Dose: 400 mg Documented by: FE Lamotrigine (Lamotrigine 25 Mg Tablet) 25 mg PO BID [facility] Last Admin: 09/22/21 21:22 Dose: 25 mg Documented by: FE Levetiracetam (Levetiracetam 1,000 Mg Tablet) 1,000 mg PO BID [facility] Last Admin: 09/22/21 21:25 Dose: Not Given Documented by: FE Non-Admin Reason: Duplicate Order Lorazepam (Lorazepam 2 Mg/Ml Vial) 1 mg IVPUSH Q2H PRN PRN Reason: Seizures Melatonin (Melatonin 3 Mg Tablet) 6 mg PO BEDTIME PRN PRN Reason: Insomnia Multivitamins/Vitamin C (Multivitamin Tablet) 1 tab PO DAILY [facility] Stop: 09/26/21 08:59 Last Admin: 09/23/21 09:09 Dose: 1 tab Documented by: Phenobarbital (Phenobarbital 15 Mg Tablet) 45 mg PO BID [facility]; Protocol Stop: 09/24/21 21:01 Last Admin: 09/23/21 09:09 Dose: 45 mg Documented by: Phenobarbital (Phenobarbital 30 Mg Tablet) 30 mg PO BID [facility]; Protocol Stop: 09/26/21 21:01 Phenobarbital (Phenobarbital 30 Mg Tablet) 30 mg PO DAILY [facility]; Protocol Stop: 09/28/21 09:01 Senna (Sennosides 8.6 Mg Tablet) 17.2 mg PO BEDTIME PRN PRN Reason: Constipation Sodium Chloride (0.9 % Sodium Chloride Flush 3 Ml Syringe) 3 ml IVFLUSH QSHIFT [facility] Last Admin: 09/23/21 00:44 Dose: 3 ml Documented by: HARJIT Thiamine HCl (Thiamine Hcl 100 Mg Tablet) 100 mg PO DAILY [facility] Stop: 09/26/21 08:59 Last Admin: 09/23/21 09:08 Dose: 100 mg Documented by: Trazodone HCl (Trazodone Hcl 50 Mg Tablet) 150 mg PO BEDTIME [facility] Labs CBC & Chem 7: 09/23/21 05:04 09/23/21 05:04 Labs: Laboratory Results - last 24 hr 09/22/21 09/22/21 09/22/21 17:39 17:39 17:39 MCV 91.2 MCH 32.2 MCHC 35.3 RDW 15.0 Plt Count 162 MPV 9.6 Immature Gran % (Auto) 0.2 Neut % (Auto) 52.5 Lymph % (Auto) 32.9 [place] % (Auto) 11.4 H Eos % (Auto) 1.6 Baso % (Auto) 1.4 Lymph # (Auto) 1.7 [place] # (Auto) 0.6 Eos # (Auto) 0.1 Baso # (Auto) 0.1 Abs Immat Gran (auto) 0.01 Absolute Neuts (auto) 2.7 Absolute Nucleated RBC 0.000 Nucleated RBC % (auto) 0.0 PT INR APTT Anion Gap 24 H Estim Creat Clear Calc 121.2 Estimated GFR > 60 Random Glucose 85 Calcium 8.6 Magnesium 1.9 Total Bilirubin 1.7 H Direct Bilirubin AST 76 H ALT 47 H Alkaline Phosphatase 89 Total Protein 6.0 L Albumin 3.5 Lipase 57 Valproic Acid Ethyl Alcohol 291 COVID-19 ([facility]) COVID-19 Clin Com 09/22/21 09/22/21 09/22/21 17:39 17:39 22:07 MCV MCH MCHC RDW Plt Count MPV Immature Gran % (Auto) Neut % (Auto) Lymph % (Auto) [place] % (Auto) Eos % (Auto) Baso % (Auto) Lymph # (Auto) [place] # (Auto) Eos # (Auto) Baso # (Auto) Abs Immat Gran (auto) Absolute Neuts (auto) Absolute Nucleated RBC Nucleated RBC % (auto) PT 11.8 INR 1.0 APTT 23.8 L Anion Gap Estim Creat Clear Calc Estimated GFR Random Glucose Calcium Magnesium Total Bilirubin Direct Bilirubin AST ALT Alkaline Phosphatase Total Protein Albumin Lipase Valproic Acid 4.3 L Ethyl Alcohol COVID-19 ([facility]RIC) Negative COVID-19 Clin Com See Note 09/23/21 09/23/21 09/23/21 05:04 05:04 05:04 MCV 92.8 MCH 32.1 MCHC 34.5 RDW 14.8 Plt Count 166 MPV 10.9 Immature Gran % (Auto) 0.0 Neut % (Auto) 37.5 L Lymph % (Auto) 43.3 H [place] % (Auto) 14.2 H Eos % (Auto) 3.7 Baso % (Auto) 1.3 Lymph # (Auto) 1.6 [place] # (Auto) 0.5 Eos # (Auto) 0.1 Baso # (Auto) 0.1 Abs Immat Gran (auto) 0.00 Absolute Neuts (auto) 1.4 L Absolute Nucleated RBC 0.000 Nucleated RBC % (auto) 0.0 PT INR APTT Anion Gap 17 Estim Creat Clear Calc 115.8 Estimated GFR > 60 Random Glucose 95 Calcium 7.9 L D Magnesium Total Bilirubin 1.3 H Direct Bilirubin 0.5 AST 97 H ALT 49 H Alkaline Phosphatase 91 Total Protein 5.4 L Albumin 3.1 L Lipase Valproic Acid Ethyl Alcohol COVID-19 ([facility]) COVID-19 Clin Com Assessment and Plan (1) Generalized seizure: Status: Acute (2) Alcohol withdrawal: Status: Acute (3) Alcohol abuse: Status: Acute Assessment and Plan: ? 61-year-old male with a past medical history of hypertension, diabetes, polysubstance abuse, alcohol abuse, liver cirrhosis, hepatitis-C, COPD, history of NSTEMI, history of DVT/PE status post IVC filter, migraine headaches, seizure disorder on antiepileptics, history of migraines, history of C diff, history of cerebral aneurysm status post clipping presented to the hospital today with a chief complaint of seizure episode.? Admitted for following Seizure episode:? Likely in the setting of medication noncompliance.? Depakote level is low Continue home Depakote, lamotrigine, Keppra.? Seizure precautions Aspiration precautions and fall precautions. IV Ativan p.r.n. for breakthrough seizures.? Alcohol abuse:? Patient is started on phenobarb protocol.? Continue thiamine folate and multivitamins. Transaminitis: In the setting of alcohol use.? Patient has chronically elevated liver enzymes. Recent history of SBO:? Resolved.? Patient currently denies any abdominal symptoms.? Will continue to monitor For all other chronic conditions, home medications continued DVT prophylaxis: SCD boots Code status:? Full code Quality Stroke Does the patient have a stroke diagnosis?: No VTE Prior VTE?: No VTE Risk Level:: Medical - low VTE Device Contraindication: N/A - Device Ordered VTE Drug Contraindication: Treatment Not Indicated
[2021-09-23] MEDS: Nicotine 14 MG PATCH.TD24 TRANSDERMA (11:23)
[2021-09-23 12:00] VITALS: BP 114/82; PULSE 100; RESP 18; TEMP 36.5; O2SAT 99
[2021-09-23 15:45] VITALS: BP 124/71; PULSE 93; RESP 20; TEMP 36.8; O2SAT 94
[2021-09-23 16:04] LABS: Glucose, Whole Blood 118 mg/dL (60-115)
--- NOTE | 2021-09-23 16:25 | MHC.CM.PN ---
CM EMT WITH PT WHO REPORTS HE LIVES WITH HIS SON AND WAS INDEPENDENT WITH CARE PRIOR TO A RECENT STROKE PT REPORTS HE IS ACTIVE WITH [facility] FOR PT/OT/SN PT REPORTS HE DOES NOT HAVE ANY DME HOWEVER REQUIRES A CPAP, NEBULIZER AND GLUCOMETER. HE REPORTS HE LEFT ALL OF THESE ITEMS IN [place] WHEN HE CAME HERE. PT REPORTS HIS PCP IS CHRISTAL NDIAYE PT SAYS HE HAS A HCP NAMING HIS SON HIS AGENT IMM SAEED CURRENT DC PLAN IS HOME WITH RESUMPTION OF [facility] SON TO TRANSPORT
[2021-09-23] MEDS: cloNIDine HCL 0.1 MG TABLET PO (19:54)
[2021-09-23 20:00] VITALS: BP 133/85; PULSE 91; RESP 18; TEMP 36.4; O2SAT 94
[2021-09-23] MEDS: traZODone HCL 50 MG TABLET 150 MG PO (20:37)
[2021-09-23] MEDS: Atorvastatin Calcium 40 MG TABLET PO (20:37)
[2021-09-24] VITALS: BP 109/68; PULSE 70; RESP 16; TEMP 36.2; O2SAT 91
[2021-09-24 04:00] VITALS: BP 149/79; PULSE 99; RESP 20; TEMP 36.5; O2SAT 92
[2021-09-24 07:48] VITALS: BP 109/58; PULSE 81; RESP 18; TEMP 36.8; O2SAT 91
[2021-09-24] MEDS: 0.9 % Sodium Chloride Flush 3 ML SYRINGE IVFLUSH ×3 (07:58→20:00)
[2021-09-24] MEDS: Nicotine 14 MG PATCH.TD24 TRANSDERMA (07:58)
[2021-09-24] MEDS: Folic Acid 1 MG TABLET PO (07:59)
[2021-09-24] MEDS: PHENobarbitaL 15 MG TABLET 45 MG PO ×2 (07:59→19:59)
[2021-09-24] MEDS: Thiamine HCL 100 MG TABLET PO (07:59)
[2021-09-24] MEDS: Multivitamin TABLET 1 TAB PO (07:59)
[2021-09-24] MEDS: lamoTRIgine 25 MG TABLET PO ×2 (07:59→20:00)
[2021-09-24] MEDS: Escitalopram Oxalate 20 MG TABLET PO (07:59)
[2021-09-24] MEDS: levETIRAcetam 1,000 MG TABLET 1000 MG PO ×2 (07:59→20:00)
[2021-09-24] MEDS: Divalproex Sodium ER 500 MG TAB.ER.24H PO (07:59)
[2021-09-24] MEDS: Gabapentin 400 MG CAPSULE PO ×3 (07:59→19:59)
[2021-09-24] MEDS: Famotidine 20 MG TABLET PO ×2 (07:59→20:00)
--- NOTE | 2021-09-24 09:51 | HO.PM.IMPN ---
Subjective Subjective Date of Service: 09/24/21 Interval History: Seen in f/u for seizure, c/o not feeling well, headache, and thinks he might have forgotten to take his meds. No seizure, now c/o some abdominal pain and stating he was recently treated for diverticulitis Review of Systems no fever some headache--old no seizure Physical Exam Vital Signs: Vital Signs: Last Vital Signs Temp 98.2 F 09/24/21 07:48 Pulse 81 09/24/21 07:48 Resp 18 09/24/21 07:48 BP 109/58 L 09/24/21 07:48 Pulse Ox 91 L 09/24/21 07:48 BMI result Body Mass Index 22.9 Const: Other: General: AO X 3, no acute distress Resp: CTA bilateral CVS: S1,S2,RRR GI: +BS, NT, no distention Skin: No rash Neuro: motor grossly intact Psych: appropriate affect Objective Data Active Medications Atorvastatin Calcium (Atorvastatin Calcium 40 Mg Tablet) 40 mg PO BEDTIME [facility] Last Admin: 09/23/21 20:37 Dose: 40 mg Documented by: YANI Clonidine HCl (Clonidine Hcl 0.1 Mg Tablet) 0.1 mg PO BEDTIME [facility]; Protocol Last Admin: 09/23/21 19:54 Dose: 0.1 mg Documented by: YANI Divalproex Sodium (Divalproex Sodium Er 500 Mg Tab.Er.24h) 500 mg PO DAILY [facility] Last Admin: 09/24/21 07:59 Dose: 500 mg Documented by: CHEMA Escitalopram Oxalate (Escitalopram Oxalate 20 Mg Tablet) 20 mg PO DAILY [facility] Last Admin: 09/24/21 07:59 Dose: 20 mg Documented by: CHEMA Famotidine (Famotidine 20 Mg Tablet) 20 mg PO BID [facility] Last Admin: 09/24/21 07:59 Dose: 20 mg Documented by: CHEMA Folic Acid (Folic Acid 1 Mg Tablet) 1 mg PO DAILY [facility] Stop: 09/26/21 08:59 Last Admin: 09/24/21 07:59 Dose: 1 mg Documented by: CHEMA Gabapentin (Gabapentin 400 Mg Capsule) 400 mg PO TID [facility] Last Admin: 09/24/21 07:59 Dose: 400 mg Documented by: CHEMA Lamotrigine (Lamotrigine 25 Mg Tablet) 25 mg PO BID [facility] Last Admin: 09/24/21 07:59 Dose: 25 mg Documented by: CHEMA Levetiracetam (Levetiracetam 1,000 Mg Tablet) 1,000 mg PO BID [facility] Last Admin: 09/24/21 07:59 Dose: 1,000 mg Documented by: CHEMA Lorazepam (Lorazepam 2 Mg/Ml Vial) 1 mg IVPUSH Q2H PRN PRN Reason: Seizures Melatonin (Melatonin 3 Mg Tablet) 6 mg PO BEDTIME PRN PRN Reason: Insomnia Multivitamins/Vitamin C (Multivitamin Tablet) 1 tab PO DAILY [facility] Stop: 09/26/21 08:59 Last Admin: 09/24/21 07:59 Dose: 1 tab Documented by: CHEMA Nicotine (Nicotine 14 Mg Patch.Td24) 14 mg TRANSDERMA DAILY [facility] Last Admin: 09/24/21 07:58 Dose: 14 mg Documented by: CHEMA Phenobarbital (Phenobarbital 15 Mg Tablet) 45 mg PO BID [facility]; Protocol Stop: 09/24/21 21:01 Last Admin: 09/24/21 07:59 Dose: 45 mg Documented by: CHEMA Phenobarbital (Phenobarbital 30 Mg Tablet) 30 mg PO BID [facility]; Protocol Stop: 09/26/21 21:01 Phenobarbital (Phenobarbital 30 Mg Tablet) 30 mg PO DAILY [facility]; Protocol Stop: 09/28/21 09:01 Senna (Sennosides 8.6 Mg Tablet) 17.2 mg PO BEDTIME PRN PRN Reason: Constipation Sodium Chloride (0.9 % Sodium Chloride Flush 3 Ml Syringe) 3 ml IVFLUSH QSHIFT [facility] Last Admin: 09/24/21 07:58 Dose: 3 ml Documented by: CHEMA Thiamine HCl (Thiamine Hcl 100 Mg Tablet) 100 mg PO DAILY [facility] Stop: 09/26/21 08:59 Last Admin: 09/24/21 07:59 Dose: 100 mg Documented by: CHEMA Trazodone HCl (Trazodone Hcl 50 Mg Tablet) 150 mg PO BEDTIME [facility] Last Admin: 09/23/21 20:37 Dose: 150 mg Documented by: YANI Labs CBC & Chem 7: 09/23/21 05:04 09/23/21 05:04 Labs: Laboratory Results - last 24 hr 09/23/21 15:56 POC Glucose 118 H Assessment and Plan (1) Generalized seizure: Status: Acute (2) Alcohol withdrawal: Status: Acute (3) Alcohol abuse: Status: Acute Assessment and Plan: ? 61-year-old male with a past medical history of hypertension, diabetes, polysubstance abuse, alcohol abuse, liver cirrhosis, hepatitis-C, COPD, history of NSTEMI, history of DVT/PE status post IVC filter, migraine headaches, seizure disorder on antiepileptics, history of migraines, history of C diff, history of cerebral aneurysm status post clipping presented to the hospital today with a chief complaint of seizure episode.? Admitted for following Seizure episode:? Likely in the setting of medication noncompliance.? Depakote level is low Continue home Depakote, lamotrigine, Keppra.? Seizure precautions Aspiration precautions and fall precautions. IV Ativan p.r.n. for breakthrough seizures.? Alcohol abuse:? Patient is started on phenobarb protocol.? Continue thiamine folate and multivitamins. Transaminitis: In the setting of alcohol use.? Patient has chronically elevated liver enzymes. Recent history of SBO:? Resolved.? Patient currently denies any abdominal symptoms.? Will continue to monitor For all other chronic conditions, home medications continued Abdominal pain--get CT if CT unremarkable will discharge DVT prophylaxis: SCD boots Code status:? Full code Quality Stroke Does the patient have a stroke diagnosis?: No VTE Prior VTE?: No VTE Risk Level:: Medical - low VTE Device Contraindication: N/A - Device Ordered VTE Drug Contraindication: Treatment Not Indicated
[2021-09-24 11:04] VITALS: BP 105/59; PULSE 77; RESP 19; TEMP 36.6; O2SAT 95
[2021-09-24] MEDS: oxyCODONE HCl Immed Release 5 MG TABLET PO (14:44)
[2021-09-24 16:00] VITALS: BP 129/71; PULSE 100; RESP 18; TEMP 37; O2SAT 92
[2021-09-24 19:46] VITALS: BP 110/72; PULSE 76; RESP 18; TEMP 36.9; O2SAT 97
[2021-09-24] MEDS: Atorvastatin Calcium 40 MG TABLET PO (20:00)
[2021-09-24] MEDS: traZODone HCL 50 MG TABLET 150 MG PO (20:00)
[2021-09-24] MEDS: cloNIDine HCL 0.1 MG TABLET PO (20:00)
[2021-09-25] VITALS: BP 95/52; PULSE 77; RESP 18; TEMP 36.2; O2SAT 98
[2021-09-25 04:00] VITALS: BP 144/88; PULSE 66; RESP 16; TEMP 36.1; O2SAT 98
[2021-09-25 07:35] VITALS: BP 110/61; PULSE 71; RESP 18; TEMP 36.7; O2SAT 95
[2021-09-25] MEDS: Multivitamin TABLET 1 TAB PO (09:31)
[2021-09-25] MEDS: PHENobarbitaL 30 MG TABLET PO (09:32)
[2021-09-25] MEDS: Divalproex Sodium ER 500 MG TAB.ER.24H PO (09:32)
[2021-09-25] MEDS: Thiamine HCL 100 MG TABLET PO (09:33)
[2021-09-25] MEDS: Gabapentin 400 MG CAPSULE PO ×3 (09:33→13:35)
[2021-09-25] MEDS: levETIRAcetam 1,000 MG TABLET 1000 MG PO (09:33)
[2021-09-25] MEDS: lamoTRIgine 25 MG TABLET PO (09:33)
[2021-09-25] MEDS: Folic Acid 1 MG TABLET PO (09:34)
[2021-09-25] MEDS: Escitalopram Oxalate 20 MG TABLET PO (09:34)
[2021-09-25] MEDS: Famotidine 20 MG TABLET PO (09:34)
[2021-09-25] MEDS: Nicotine 14 MG PATCH.TD24 TRANSDERMA (09:35)
[2021-09-25] MEDS: 0.9 % Sodium Chloride Flush 3 ML SYRINGE IVFLUSH (09:35)
[2021-09-25 10:00] LABS: Alanine Aminotransferase 40 U/L (0-40); Albumin Level 2.9 g/dL (3.5-5.0); Alkaline Phosphatase 94 U/L (39-117); Aspartate Amino Transferase 65 U/L (5-37); Bilirubin Direct 0.4 mg/dL (0.0-0.5); Bilirubin Total 0.9 mg/dL (0.0-1.0); Total Protein 5.1 g/dL (6.5-8.0)
--- NOTE | 2021-09-25 10:56 | MHC.CM.PN ---
nurse rn case management jarad per hospitlaist patient will be dischagred home today discharge plan resumption of his services with the [facility] for nrusing pcp patient /son to call for post hospitla discharge follow up transport patients son medicare imm done t/c call to patients son to inform him that his father will be discharged today , and staff nurse will call him with time to pick him up
--- NOTE | 2021-09-25 11:00 | P.DS_ITS ---
DS: Providers Provider Date of Service: 09/25/21 Date of admission: 09/22/21 20:35 Primary care physician: Unknown Physician DS: Diagnosis Discharge Diagnosis (1) Generalized seizure: Status: Resolved (2) Alcohol withdrawal: Status: Resolved (3) Alcohol abuse: Status: Resolved DS: Summary Hospital Course Hospital Course: Chief Complaint: Seizure 61-year-old male with a past medical history of hypertension, diabetes, polysubstance abuse, alcohol abuse, liver cirrhosis, hepatitis-C, COPD, history of NSTEMI, history of DVT/PE status post IVC filter, migraine headaches, seizure disorder on antiepileptics, history of migraines, history of C diff, history of cerebral aneurysm status post clipping presented to the hospital today with a chief complaint of seizure episode.? Patient is a poor historian.? Reportedly patient had an episode of seizure at home and subsequently brought to the hospital for further evaluation.? Patient reports that he has been drinking regularly. Reports he had a recent admission to the [facility] for constipation, diverticulitis, small-bowel obstruction.? Denies any abdominal pain nausea vomiting or diarrhea.? Denies any numbness tingling or focal weakness.? Review of all other systems is negative except mentioned above ER course:? Per ER team patient's exam was benign, CT head and CT C-spine showed no acute findings; alcohol level noted to be elevated; also has mild transaminitis. Depakote level was low.? Concern for seizure episode secondary to medication noncompliance.? Admitted for further management.? Patient started on phenobarb protocol. Hospital course: Essentially he presented with breakthorugh seizure, he claims that he forgot to take meds for several days, he also has been drinking alcohol. Depakote level was low, LFTs are slightly high lkely from chronic alcoholic liver disease from. He has been restared on all his medications and has not had any further episode, LFTs should be closely monitored and if going up Depakote should discontinued. Time Spent with Patient Time attestation: Total time spent providing and/or coordinating discharge services: Discharge coordination time: Greater than 30 minutes Quality: Stroke Does the patient have a stroke diagnosis?: No Physical Exam Verdana 4l Vital Signs: Verdana 4d Verdana 4d Vital Signs: Verdana 4d Verdana 4Bd Last Vital Signs Verdana 4d Chest Painting Leader New 4d Chest Painting Leader New 4d Temp 98.0 F 09/25/21 07:35 Chest Painting Leader New 4d Pulse 71 09/25/21 07:35 Chest Painting Leader New 4d Resp 18 09/25/21 07:35 BP 110/61 09/25/21 07:35 Pulse Ox 95 09/25/21 07:35 BMI result Body Mass Index 22.9 DS: Data Data Completed and Pending Labs on day of discharge: Laboratory Results - last 24 hr 09/25/21 09:05 Total Bilirubin 0.9 Direct Bilirubin 0.4 AST 65 H ALT 40 Alkaline Phosphatase 94 Total Protein 5.1 L Albumin 2.9 L Discharge Plan Discharge Anticipated Discharge Date/Time: 09/25/21 10:25 Patient Disposition: Home Health Service Discharge Diagnosis: Seizure Referrals: [facility] [Other] - 1 Day [facility] patients son pcp patient /son to call for post hospital -discharge) Physician,Unknown J [Physician] - 1 Week Discharge Medications: Continued gabapentin 400 mg capsule 1 cap PO TID 0RF acetaminophen 500 mg tablet 1,000 mg PO TID PRN (Reason: Pain) 0RF lamotrigine 25 mg tablet 1 tab PO BID 0RF aspirin 81 mg tablet,chewable 1 tab PO DAILY 0RF divalproex 250 mg tablet extended release 24 hr 500 mg PO DAILY 0RF levetiracetam 1,000 mg tablet 1 tab PO BID 0RF Dulera 100-5 mcg/actuation HFA aerosol inhaler 2 puff inhalation BID 0RF Breo Ellipta 100-25 mcg/dose blister with device 1 puff inhalation DAILY 0RF Incruse Ellipta 62.5 mcg/actuation blister with device 1 puff inhalation DAILY 0RF multivitamin Tablet 1 tab PO DAILY 0RF atorvastatin 40 mg tablet 1 tab PO DAILY 0RF clonidine HCl 0.1 mg tablet 1 tab PO QPM 0RF escitalopram oxalate 20 mg tablet 1 tab PO DAILY 0RF trazodone 150 mg tablet 1 tab PO BEDTIME Qty: 15 0RF Discharge Orders: Discharge Order (Routine); Ordered 09/25/21 Ordered By: Lencho Pendleton Diet: advance to usual diet Activity on Discharge: As tolerated Stand Alone Forms: Patient Portal Discharge page Other Ambulatory Orders: Liver Panel (Routine) Timeframe: 1 Week Facility: [facility] - Location: Laboratory Ordered By: Lencho Pendleton Care Plan Goals: prevent rehospitalization from breakthrough seizure Health Concerns: seizures and non compliance with medications Plan of Treatment: eliel alocohol, take your medications as directed and follow up with your Doctor elaine week Assessment: As above Discharge Date/Time: 09/25/21 14:47
--- NOTE | 2021-09-25 11:06 | W.MHC.F2F ---
Service Date Service Date: 09/25/21 Encounter Date of encounter: 09/25/21 Reasons for Services Signs and symptoms assessed: weakness post seizure Reason for detention: medication treatment Reason for physical therapy: therapeutic exercises and gait/transfer training Homebound: Leaving the home is medically contraindicated at this time without the asist of a device and/or another person due th the listed conditions above and below. Reason homebound: unable to drive Certification: Based on the above findings, I certify that this patient is confined to the home and needs intermittent detention care, physical therapy and/or speech therapy, or continues to need occupational therapy. The patient is under my care, and I have initiated the establishment of the plan of care. The patient will be followed by a physician who will periodically review the plan of care.
[2021-09-25 11:34] VITALS: BP 114/61; PULSE 83; RESP 20; TEMP 36.6; O2SAT 96
[2021-09-25] MEDS: Morphine Sulfate 2 MG/ML CARTRIDGE IVPUSH (13:33)
[2021-09-25] MEDS: Aspirin 81 MG TAB.CHEW PO (13:33)
--- NOTE | 2021-09-25 14:30 | MHC.SLORD ---
Speech Language Pathology Order Status: Sent secure text to (Dr. Pendleton) re Speech eval/consult ordered for this PT on 09/25. stated that consult/eval not needed at this time. D/C of Speech order.
== END 2021-09-25 14:47 | disposition home health service (06) | DRG 101 ==
LOC: HO.ED 17:24 → HO.EDOVER 20:44 → HO.S3 22:58
PROVIDERS: Physician Assistant; Admitting Provider Hospitalist; Emergency Provider Emergency Medicine; PCP Hospitalist; Visit Provider Internal Medicine
DX: G40.409 Other generalized epilepsy and epileptic syndromes, not intractable, without status epilepticus (principal); F10.239 Alcohol dependence with withdrawal, unspecified; K70.9 Alcoholic liver disease, unspecified; I25.2 Old myocardial infarction; Z20.822 Contact with and (suspected) exposure to COVID-19; F17.210 Nicotine dependence, cigarettes, uncomplicated; Z71.6 Tobacco abuse counseling; Z91.14 Patient's other noncompliance with medication regimen; Z79.899 Other long term (current) drug therapy
CPT/HCPCS: 36415; 70450; 72125; 74176; 80048; 80053; 80076; 80164; 82077; 82947; 83690; 83735; 85025; 85610; 85730; 87635; 96361; 96372; 96374; 99285; J1953; J2270; J2560